=== PATIENT | male | born 1990 | race Hispanic/Latino ===

== ENCOUNTER 2019-06-11 14:18 | Emergency (ER) | payer SELFPAY ==
[2019-06-11 14:42] VITALS: BP 121/64
[2019-06-11] MEDS ORDERED: KEFLEX500 M1 PO (14:53)
== END 2019-06-11 15:04 | disposition home or self-care (01) | DRG 603 ==
LOC: ED 14:18
DX: L01.00 Impetigo, unspecified (principal)